=== PATIENT | male | born 1930 | race Caucasian/White ===

== ENCOUNTER 2018-06-28 21:42 | Observation (INO) ==
[2018-06-28] MEDS ORDERED: ASPIRIN 325 MG TABLET PO STA (23:26)
[2018-06-28] MEDS ORDERED: NITROGLYCERIN 2% OINT 1 INCH/GM PACK TOP STA (23:26)
[2018-06-28 23:57] LABS: Basophils % 0.4 % (0.0-0.8); Eosinophils # 0.2 10*3/uL (0.0-0.87); Eosinophils % 3.3 % (0.00-10.9); Hematocrit 33.2 VOL% (42.0-52.0); Hemoglobin 11.7 GM/DL (14.0-18.0); Immature Granulocytes % 0.2 %; Immature Granulocytes Absolute 0.01 #; Lymphocytes # 1.9 10*3/uL (1.4-4.0); Lymphocytes % 36.5 % (21.2-54.2); Mean Corpuscular HGB Conc 35.2 GM/DL (32-36); Mean Corpuscular Hemoglobin 35 PG (27-34); Mean Corpuscular Volume 99.1 FL (87-102); Mean Platelet Volume 10.2 FL (9.6-12.0); Monocytes # 0.5 10*3/uL (0.11-0.8); Monocytes % 10.2 % (1.7-12.7); Neutrophils # 2.5 10*3/uL (1.4-7.4); Neutrophils % 49.4 % (38.7-73.9); Platelet Count 167 T/CUMM (130-400); Red Blood Count 3.35 MC/CUMM (3.8-5.5); Red Cell Distribution Width 11.4 % (9.3-17.3); White Blood Count 5.1 T/CUMM (4-12)
[2018-06-29 00:32] LABS: Alanine Aminotransferase 32 U/L (16-61); Albumin 4.3 G/DL (3.4-5.0); Alkaline Phosphatase 92 U/L (45-117); Aspartate Amino Transferase 19 U/L (0-37); Bilirubin,Total < 0.39 MG/DL (0.2-1.0); Blood Urea Nitrogen 18 MG/DL (7-18); Calcium 9.4 MG/DL (8.5-10.1); Glucose 109 MG/DL (74-106); Osmolality,Calculated 270.2 MOS/KG (273-304); Sodium 134 MMOL/L (136-145); Total Protein 7.6 G/DL (6.4-8.3)
[2018-06-29] MEDS ORDERED: hydrALAZINE 20 MG/1 ML VIAL IV STA (01:16)
[2018-06-29] MEDS ORDERED: ONDANSETRON 4 MG/2 ML VIAL IV PRN (02:26)
[2018-06-29] MEDS ORDERED: LISINOPRIL 10 MG TABLET PO STA (02:26)
[2018-06-29] MEDS ORDERED: ASPIRIN CHEW 81 MG TABLET PO STA (02:26)
[2018-06-29] MEDS ORDERED: ACETAMINOPHEN 325 MG TABLET PO PRN (02:26)
[2018-06-29] MEDS ORDERED: amLODIPine 5 MG TABLET PO STA (02:26)
[2018-06-29] MEDS ORDERED: amLODIPine 10 MG TABLET ONE (02:34)
[2018-06-29] MEDS ORDERED: GABAPENTIN 300 MG CAPSULE PO ONE (03:39)
[2018-06-29] MEDS ORDERED: traZODone 50 MG TABLET PO ONE (03:40)
[2018-06-29 05:31] LABS: Basophils % 0.5 % (0.0-0.8); Eosinophils # 0.1 10*3/uL (0.0-0.87); Eosinophils % 3.2 % (0.00-10.9); Hematocrit 30.4 VOL% (42.0-52.0); Hemoglobin 10.5 GM/DL (14.0-18.0); Immature Granulocytes % 0.5 %; Immature Granulocytes Absolute 0.02 #; Lymphocytes # 1.7 10*3/uL (1.4-4.0); Lymphocytes % 41.4 % (21.2-54.2); Mean Corpuscular HGB Conc 34.5 GM/DL (32-36); Mean Corpuscular Hemoglobin 34 PG (27-34); Mean Corpuscular Volume 99.3 FL (87-102); Mean Platelet Volume 10.4 FL (9.6-12.0); Monocytes # 0.4 10*3/uL (0.11-0.8); Monocytes % 9.6 % (1.7-12.7); Neutrophils # 1.8 10*3/uL (1.4-7.4); Neutrophils % 44.8 % (38.7-73.9); Platelet Count 148 T/CUMM (130-400); Red Blood Count 3.06 MC/CUMM (3.8-5.5); Red Cell Distribution Width 11.3 % (9.3-17.3); White Blood Count 4.1 T/CUMM (4-12)
[2018-06-29 06:23] LABS: Potassium 3.5 MMOL/L (3.5-5.1)
[2018-06-29 06:26] LABS: Calcium 9.2 MG/DL (8.5-10.1)
[2018-06-29 06:28] LABS: Albumin 3.6 G/DL (3.4-5.0)
[2018-06-29 06:32] LABS: Bilirubin,Total 0.4 MG/DL (0.2-1.0)
[2018-06-29 06:33] LABS: Total Protein 6.5 G/DL (6.4-8.3)
[2018-06-29] MEDS ORDERED: traZODone 50 MG TABLET PO SCH (21:00)
[2018-06-29] MEDS ORDERED: GABAPENTIN 300 MG CAPSULE PO SCH (21:00)
[2018-06-29] MEDS: PANTOPRAZOLE 40 MG TABLET PO SCH (21:09)
[2018-06-29] MEDS: CARVEDILOL 3.125 MG TABLET PO SCH (21:09)
[2018-06-29] MEDS: PRIMIDONE 50 MG TABLET PO SCH (21:09)
[2018-06-30 05:01] LABS: Basophils % 0.2 % (0.0-0.8); Eosinophils # 0.1 10*3/uL (0.0-0.87); Eosinophils % 2.5 % (0.00-10.9); Hematocrit 29.8 VOL% (42.0-52.0); Hemoglobin 10.2 GM/DL (14.0-18.0); Immature Granulocytes % 0.2 %; Immature Granulocytes Absolute 0.01 #; Lymphocytes # 1.5 10*3/uL (1.4-4.0); Lymphocytes % 35.4 % (21.2-54.2); Mean Corpuscular HGB Conc 34.2 GM/DL (32-36); Mean Corpuscular Hemoglobin 34 PG (27-34); Mean Platelet Volume 10.3 FL (9.6-12.0); Monocytes # 0.4 10*3/uL (0.11-0.8); Neutrophils # 2.2 10*3/uL (1.4-7.4); Neutrophils % 51.7 % (38.7-73.9); Platelet Count 143 T/CUMM (130-400); Red Blood Count 2.98 MC/CUMM (3.8-5.5); Red Cell Distribution Width 11.5 % (9.3-17.3); White Blood Count 4.3 T/CUMM (4-12)
[2018-06-30 05:34] LABS: Calcium 8.8 MG/DL (8.5-10.1); Osmolality,Calculated 272.1 MOS/KG (273-304); Potassium 3.7 MMOL/L (3.5-5.1)
[2018-06-30] MEDS ORDERED: LISINOPRIL 10 MG TABLET PO SCH (09:00)
[2018-06-30] MEDS ORDERED: TAMSULOSIN 0.4 MG CAPSULE PO SCH (09:00)
[2018-06-30] MEDS ORDERED: MULTIVITAMIN (CENTRUM) TABLET PO SCH (09:00)
[2018-06-30] MEDS ORDERED: hydroCHLOROthiazide 12.5 MG CAPSULE PO SCH (09:00)
[2018-06-30] MEDS ORDERED: ASCORBIC ACID 500 MG TABLET PO SCH (09:00)
[2018-06-30] MEDS ORDERED: amLODIPine 5 MG TABLET PO SCH (09:00)
[2018-06-30] MEDS ORDERED: ISOSORBIDE MONONITRATE 30 MG TABLET PO SCH (09:00)
[2018-06-30] MEDS ORDERED: OMEGA 3 ACID ETHYL ESTERS 1 GM CAPSULE PO SCH (09:00)
[2018-06-30] MEDS ORDERED: ASPIRIN EC 81 MG TABLET PO SCH (09:00)
[2018-06-30] MEDS ORDERED: VITAMIN E 400 UNIT CAPSULE PO SCH (09:00)
[2018-06-30] MEDS ORDERED: ZINC GLUCONATE 50 MG TABLET PO SCH (09:00)
[2018-06-30] MEDS ORDERED: ROSUVASTATIN 20 MG TABLET PO SCH (09:00)
[2018-06-30] MEDS: PRIMIDONE 50 MG TABLET PO SCH (10:17)
[2018-06-30] MEDS: CARVEDILOL 3.125 MG TABLET PO SCH (10:21)
[2018-06-30] MEDS: PANTOPRAZOLE 40 MG TABLET PO SCH (10:22)
[2018-06-30 12:38] VITALS: BP 170/75
== END 2018-06-30 14:36 | disposition home or self-care (01) ==
LOC: N.EDINP 21:42 → N.ED 21:42 → N.TELEN 06-29 01:30
PROVIDERS: ADMIT Family Medicine; ATTEND Family Medicine

== ENCOUNTER 2018-12-31 06:25 | Inpatient (IN) ==
[2018-12-30 12:58] LABS: Basophils % 0.4 % (0.0-0.8); Eosinophils # 0.2 10*3/uL (0.0-0.87); Eosinophils % 3.2 % (0.00-10.9); Hematocrit 30.9 VOL% (42.0-52.0); Hemoglobin 10.3 GM/DL (14.0-18.0); Immature Granulocytes % 0.4 %; Immature Granulocytes Absolute 0.02 #; Lymphocytes # 1.5 10*3/uL (1.4-4.0); Lymphocytes % 32.3 % (21.2-54.2); Mean Corpuscular HGB Conc 33.3 GM/DL (32-36); Mean Corpuscular Hemoglobin 35 PG (27-34); Mean Platelet Volume 10.1 FL (9.6-12.0); Monocytes # 0.5 10*3/uL (0.11-0.8); Monocytes % 9.6 % (1.7-12.7); Neutrophils # 2.6 10*3/uL (1.4-7.4); Neutrophils % 54.1 % (38.7-73.9); Platelet Count 151 T/CUMM (130-400); Red Blood Count 2.97 MC/CUMM (3.8-5.5); Red Cell Distribution Width 11.9 % (9.3-17.3); White Blood Count 4.7 T/CUMM (4-12)
[2018-12-30 13:13] LABS: Calcium 8.2 MG/DL (8.5-10.1); Osmolality,Calculated 275.1 MOS/KG (273-304)
[~2018-12-31 06:25] MED LIST: FAMOTIDINE 20 MG TABLET PO ONE
[2018-12-31] MEDS ORDERED: ceFAZolin 1,000 MG in SYRINGE 1 EACH IV ONE (06:30)
[2018-12-31] MEDS ORDERED: HEPARIN 5,000 UNIT/1 ML VIAL ONE (07:03)
[2018-12-31] MEDS ORDERED: LIDOCAINE 1% 20 ML VIAL ONE (07:03)
[2018-12-31] MEDS ORDERED: LACTATED RINGERS 1,000 ML IV SCH (08:00)
[2018-12-31] MEDS ORDERED: ceFAZolin 1,000 MG VIAL ONE (08:04)
[2018-12-31] MEDS ORDERED: FAMOTIDINE 20 MG TABLET ONE (08:04)
[2018-12-31] MEDS ORDERED: GLUCAGON 1 MG VIAL IM PRN (10:01)
[2018-12-31] MEDS ORDERED: HYDROmorphone 2 MG/1 ML VIAL IV PRN (10:01)
[2018-12-31] MEDS ORDERED: PROMETHAZINE 25 MG/1 ML VIAL IM PRN (10:01)
[2018-12-31] MEDS ORDERED: NALOXONE 0.4 MG/ML VIAL IV PRN (10:01)
[2018-12-31] MEDS ORDERED: DEXTROSE 50% 25 GM/50 ML VIAL IV PRN (10:01)
[2018-12-31] MEDS ORDERED: ONDANSETRON 4 MG/2 ML VIAL IV PRN (10:01)
[2018-12-31] MEDS ORDERED: PHENYLEPHRINE DRIP 40 MG/250 ML PREMIX IV SCH (10:30)
[2018-12-31] MEDS ORDERED: NITROPRUSSIDE 100 MG in DEXTROSE 5% 250 ML IV SCH (10:30)
[2018-12-31] MEDS ORDERED: PROPOFOL 200 MG/20 ML VIAL IV ONE (10:39)
[2018-12-31] MEDS ORDERED: SEVOFLURANE 1 UNIT/15 MINUTE INH ONE (10:39)
[2018-12-31] MEDS ORDERED: fentaNYL 100 MCG/2 ML VIAL ONE (10:40)
[2018-12-31] MEDS ORDERED: ROCURONIUM 100 MG/10 ML VIAL IV ONE (10:41)
[2018-12-31] MEDS ORDERED: ONDANSETRON 4 MG/2 ML VIAL ONE (10:41)
[2018-12-31] MEDS ORDERED: ETOMIDATE 40 MG/20 ML VIAL IV ONE (10:41)
[2018-12-31] MEDS ORDERED: ePHEDrine 50 MG/ML AMP ONE (10:41)
[2018-12-31] MEDS ORDERED: NITROGLYCERIN DRIP 50 MG/250 ML BOTTLE IV ONE (10:41)
[2018-12-31] MEDS ORDERED: SODIUM CHLORIDE 0.9% 1,000 ML IV ONE (10:41)
[2018-12-31] MEDS ORDERED: SUCCINYLCHOLINE 200 MG/10 ML VIAL ONE (10:41)
[2018-12-31] MEDS ORDERED: PROTAMINE SULFATE 50 MG/5 ML VIAL IV ONE (10:42)
[2018-12-31] MEDS ORDERED: HEPARIN 10,000 UNIT/10 ML VIAL ONE (10:42)
[2018-12-31] MEDS: LACTATED RINGERS 1,000 ML IV SCH ×2 (11:49→23:12)
[2018-12-31] MEDS: oxyCODONE/ACETAMINOPHEN 5-325 MG TABLET PO PRN ×2 (13:47→20:04)
[2018-12-31] MEDS: PRIMIDONE 50 MG TABLET PO SCH ×2 (15:23→20:04)
[2018-12-31] MEDS: GABAPENTIN 300 MG CAPSULE PO SCH (20:04)
[2018-12-31] MEDS: amLODIPine 5 MG TABLET PO SCH (20:04)
[2018-12-31] MEDS: traZODone 50 MG TABLET PO SCH (20:04)
[2018-12-31] MEDS: ROSUVASTATIN 20 MG TABLET PO SCH (20:04)
[2019-01-01] MEDS: oxyCODONE/ACETAMINOPHEN 5-325 MG TABLET PO PRN ×2 (05:37→16:44)
[2019-01-01 08:16] LABS: Basophils % 0.2 % (0.0-0.8); Eosinophils # 0.1 10*3/uL (0.0-0.87); Eosinophils % 1.5 % (0.00-10.9); Hematocrit 26.5 VOL% (42.0-52.0); Hemoglobin 8.5 GM/DL (14.0-18.0); Immature Granulocytes % 0.2 %; Immature Granulocytes Absolute 0.01 #; Lymphocytes # 1.1 10*3/uL (1.4-4.0); Lymphocytes % 26.9 % (21.2-54.2); Mean Corpuscular HGB Conc 32.1 GM/DL (32-36); Mean Corpuscular Hemoglobin 35 PG (27-34); Mean Corpuscular Volume 108.6 FL (87-102); Mean Platelet Volume 10.6 FL (9.6-12.0); Monocytes # 0.4 10*3/uL (0.11-0.8); Monocytes % 10.2 % (1.7-12.7); Neutrophils # 2.5 10*3/uL (1.4-7.4); Platelet Count 108 T/CUMM (130-400); Red Blood Count 2.44 MC/CUMM (3.8-5.5); Red Cell Distribution Width 12.2 % (9.3-17.3); White Blood Count 4.1 T/CUMM (4-12)
[2019-01-01] MEDS ORDERED: CLOPIDOGREL 75 MG TABLET PO SCH (09:00)
[2019-01-01] MEDS ORDERED: hydroCHLOROthiazide 12.5 MG CAPSULE PO SCH (09:00)
[2019-01-01] MEDS ORDERED: ASPIRIN EC 81 MG TABLET PO SCH (09:00)
[2019-01-01] MEDS ORDERED: ACETAMINOPHEN 500 MG TABLET PO SCH (09:00)
[2019-01-01] MEDS ORDERED: TAMSULOSIN 0.4 MG CAPSULE PO SCH ×2 (09:00→21:00)
[2019-01-01] MEDS ORDERED: LISINOPRIL 10 MG TABLET PO SCH (09:00)
[2019-01-01] MEDS: SERTRALINE 50 MG TABLET PO SCH (09:11)
[2019-01-01] MEDS: ASCORBIC ACID 500 MG TABLET PO SCH (09:11)
[2019-01-01] MEDS: PANTOPRAZOLE 40 MG TABLET PO SCH (09:11)
[2019-01-01] MEDS: ASPIRIN EC 81 MG TABLET PO SCH (09:12)
[2019-01-01] MEDS: CLOPIDOGREL 75 MG TABLET PO SCH (09:12)
[2019-01-01] MEDS: PRIMIDONE 50 MG TABLET PO SCH ×3 (09:13→21:21)
[2019-01-01] MEDS: TESTOSTERONE 25 MG TOP SCH (10:27)
[2019-01-01] MEDS: ROSUVASTATIN 20 MG TABLET PO SCH (21:19)
[2019-01-01] MEDS: GABAPENTIN 300 MG CAPSULE PO SCH (21:20)
[2019-01-01] MEDS: traZODone 50 MG TABLET PO SCH (21:20)
[2019-01-01] MEDS: amLODIPine 5 MG TABLET PO SCH (21:21)
[2019-01-01] MEDS: HYDROmorphone 2 MG/1 ML VIAL IV PRN (21:59)
[2019-01-02] MEDS: HYDROmorphone 2 MG/1 ML VIAL IV PRN (03:24)
[2019-01-02 04:03] VITALS: BP 120/56
[2019-01-02] MEDS: oxyCODONE/ACETAMINOPHEN 5-325 MG TABLET PO PRN (08:08)
[2019-01-02] MEDS: ASPIRIN EC 81 MG TABLET PO SCH (08:08)
[2019-01-02] MEDS: PRIMIDONE 50 MG TABLET PO SCH (08:08)
[2019-01-02] MEDS: TESTOSTERONE 25 MG TOP SCH (08:09)
[2019-01-02] MEDS: CLOPIDOGREL 75 MG TABLET PO SCH (08:09)
[2019-01-02] MEDS: PANTOPRAZOLE 40 MG TABLET PO SCH (08:09)
[2019-01-02] MEDS: ASCORBIC ACID 500 MG TABLET PO SCH (08:09)
[2019-01-02] MEDS: SERTRALINE 50 MG TABLET PO SCH (08:09)
[2019-01-02] MEDS ORDERED: FERROUS SULFATE 325 MG TABLET PO SCH (09:30)
== END 2019-01-02 15:19 | disposition home or self-care (01) | DRG 39 ==
LOC: N.SDSINP 06:25 → N.ICU 11:20
PROVIDERS: ADMIT Surgery; ATTEND Surgery

== ENCOUNTER 2019-02-07 11:57 | Observation (INO) ==
[2019-02-07 13:38] LABS: Basophils % 0.4 % (0.0-0.8); Eosinophils # 0.1 10*3/uL (0.0-0.87); Eosinophils % 2.8 % (0.00-10.9); Hematocrit 27.7 VOL% (42.0-52.0); Hemoglobin 9.3 GM/DL (14.0-18.0); Immature Granulocytes % 0.2 %; Immature Granulocytes Absolute 0.01 #; Lymphocytes # 1.6 10*3/uL (1.4-4.0); Lymphocytes % 34.4 % (21.2-54.2); Mean Corpuscular HGB Conc 33.6 GM/DL (32-36); Mean Corpuscular Hemoglobin 34 PG (27-34); Mean Corpuscular Volume 102.2 FL (87-102); Mean Platelet Volume 9.8 FL (9.6-12.0); Monocytes # 0.4 10*3/uL (0.11-0.8); Monocytes % 8.8 % (1.7-12.7); Neutrophils # 2.5 10*3/uL (1.4-7.4); Neutrophils % 53.4 % (38.7-73.9); Platelet Count 171 T/CUMM (130-400); Red Blood Count 2.71 MC/CUMM (3.8-5.5); Red Cell Distribution Width 11.3 % (9.3-17.3); White Blood Count 4.7 T/CUMM (4-12)
[2019-02-07 13:57] LABS: Apearance,Urine CLEAR (Clear); Bilirubin,Urine Negative (Negative); Blood, Urine Negative (Negative); Glucose,Urine (UA) Negative (Negative); Ketones,Urine Negative (Negative); Mucus,Urine Occasional /LPF (Occasional); Nitrite,Urine Negative (Negative); Protein,Urine Negative; RBC,Urine 1 /HPF (0-4); Urine Color Straw (Yellow); Urine Specific Gravity 1.004 (1.001-1.035); Urine Urobilinogen < 2.0 EU/DL (0.2-1.0)
[2019-02-07 14:14] LABS: Calcium 8.9 MG/DL (8.5-10.1); Osmolality,Calculated 263.7 MOS/KG (273-304)
[2019-02-07] MEDS ORDERED: ACETAMINOPHEN 500 MG TABLET PO STA (17:01)
[2019-02-07] MEDS ORDERED: oxyCODONE/ACETAMINOPHEN 5-325 MG TABLET PO PRN (18:36)
[2019-02-07] MEDS ORDERED: traZODone 50 MG TABLET PO SCH (21:00)
[2019-02-07] MEDS ORDERED: GABAPENTIN 300 MG CAPSULE PO SCH (21:00)
[2019-02-07] MEDS ORDERED: ROSUVASTATIN 20 MG TABLET PO SCH (21:00)
[2019-02-07] MEDS ORDERED: hydroCHLOROthiazide 12.5 MG CAPSULE PO SCH (21:00)
[2019-02-07] MEDS ORDERED: ONDANSETRON 4 MG/2 ML VIAL IV PRN (21:37)
[2019-02-07] MEDS ORDERED: ACETAMINOPHEN 325 MG TABLET PO PRN (21:37)
[2019-02-07] MEDS ORDERED: cloNIDine 0.1 MG TABLET PO PRN (21:37)
[2019-02-07] MEDS: PRIMIDONE 50 MG TABLET PO SCH (22:01)
[2019-02-07] MEDS: DOCUSATE SODIUM 100 MG CAPSULE PO SCH (22:01)
[2019-02-08] MEDS ORDERED: TAMSULOSIN 0.4 MG CAPSULE PO SCH (09:00)
[2019-02-08] MEDS ORDERED: MULTIVITAMIN (CENTRUM) TABLET PO SCH (09:00)
[2019-02-08] MEDS ORDERED: FERROUS SULFATE 325 MG TABLET PO SCH (09:00)
[2019-02-08] MEDS ORDERED: SERTRALINE 50 MG TABLET PO SCH (09:00)
[2019-02-08] MEDS ORDERED: PANTOPRAZOLE 20 MG TABLET PO SCH (09:00)
[2019-02-08] MEDS ORDERED: ASPIRIN EC 81 MG TABLET PO SCH (09:00)
[2019-02-08] MEDS ORDERED: ASCORBIC ACID 500 MG TABLET PO SCH (09:00)
[2019-02-08] MEDS ORDERED: TESTOSTERONE 25 MG TOP SCH (09:00)
[2019-02-08] MEDS ORDERED: ACETAMINOPHEN 500 MG TABLET PO SCH (09:00)
[2019-02-08] MEDS ORDERED: PANTOPRAZOLE 40 MG TABLET PO SCH (09:00)
[2019-02-08] MEDS ORDERED: CLOPIDOGREL 75 MG TABLET PO SCH (09:00)
[2019-02-08] MEDS: PRIMIDONE 50 MG TABLET PO SCH (09:46)
[2019-02-08] MEDS: DOCUSATE SODIUM 100 MG CAPSULE PO SCH (09:51)
[2019-02-08 09:53] VITALS: BP 139/64
== END 2019-02-08 13:00 | disposition home or self-care (01) ==
LOC: N.ED 11:57 → INTOOBSV 18:12 → N.EDINP 18:12 → N.TELES 20:20
PROVIDERS: ADMIT Internal Medicine; ATTEND Internal Medicine